=== PATIENT | female | born 1990 | race Caucasian/White ===

== ENCOUNTER 2018-03-10 18:13 | Inpatient (IN) | payer BC, OTHER ==
--- NOTE | 2018-03-10 19:35 | OBHP ---
Datetime: 03/10/2018 19:08 IP Adm Impression: Term, intrauterine ; No Active Labor; Intact Membranes IP Chief Complaint Other: Polyhydramnios SGA Term IP Admit Plan: Admit to unit; Initiate labor induction protocol Admit Comment, IP Provider: 27 yo female G1 with an IUP at 39.6 weeks and sent from Dr. Singh's office after c/o of contractions and was found to Have Polyhydramnios and SGA baby. Pt admitted for IOL, De nies any problems, LOF or VB. Adequate Movement. PMHX and PSHx Negative NKDA Medications PNV Social HX Denies x 3 A/P Discussed with Dr. Snigh and requested to admit patient for IOL for Polyhydramnios and SGA Pt extremely apprehensive with pelvic exams and requesting an Epidural will placee Cervidil, as per Dr Singh's instructions Admit with routine orders Anticipate a vaginal delivery A/P Primigravida at 39.5 weeks Not in labor Polyhydramnios SGA Sent for IOL, as per Dr. Singh Cephalic presentation verified with bedise US Pelvic Type - PN: Adequate Extremities - PN: Normal Abdomen - PN: Normal Back - PN: Normal Breast - PN: Not Done Lungs - PN: Normal Heart - PN: Normal Thyroid - PN: Normal Neurologic - PN: Normal HEENT - PN: Normal General - PN: Normal Presentation-Admit: Vertex FHR - Baseline A Provider: 150 Membranes, Provider: Intact Contraction Comments Provider: Irregular Gestation - Est Wks by US: 39.5 EGA AdmitDate IP: 39.5 Vital Signs Provider: Reviewed; Within Normal Limits IP Chief Complaint: Other NICHD Variability Prov Fetus A: Moderate 6-25bpm NICHD Accel Fetus A IP Provider: 10X10 NICHD Decel Fetus A IP Provider: None Dilatation, Provider: 2 Effacement, Provider: 70 Station, Provider: -3 Genitourinary Exam: Normal DTRs - PN: Normal
--- NOTE | 2018-03-10 19:52 | OBADHP ---
Datetime: 03/10/2018 19:08 IP Chief Complaint Other: Polyhydramnios SGA Term Admit Comment, IP Provider: 27 yo female G1 with an IUP at 39.6 weeks and sent from Dr. Singh's office after c/o of contractions and was found to Have Polyhydramnios and SGA baby. Pt admitted for IOL, De nies any problems, LOF or VB. Adequate Movement. PMHX and PSHx Negative NKDA Medications PNV Social HX Denies x 3 A/P Discussed with Dr. Singh and requested to admit patient for IOL for Polyhydramnios and SGA Pt extremely apprehensive with pelvic exams and requesting an Epidural will placee Cervidil, as per Dr Singh's instructions Admit with routine orders Anticipate a vaginal delivery A/P Primigravida at 39.5 weeks Not in labor Polyhydramnios SGA Sent for IOL, as per Dr. Singh Cephalic presentation verified with bedise US Pelvic Type - PN: Adequate Extremities - PN: Normal Abdomen - PN: Normal Back - PN: Normal Breast - PN: Not Done Lungs - PN: Normal Heart - PN: Normal Thyroid - PN: Normal Neurologic - PN: Normal HEENT - PN: Normal General - PN: Normal Presentation-Admit: Vertex FHR - Baseline A Provider: 150 Membranes, Provider: Intact Contraction Comments Provider: Irregular Gestation - Est Wks by US: 39.5 Vital Signs Provider: Reviewed; Within Normal Limits IP Chief Complaint: Maternal discomfort; Other NICHD Variability Prov Fetus A: Moderate 6-25bpm NICHD Accel Fetus A IP Provider: 10X10 NICHD Decel Fetus A IP Provider: None Dilatation, Provider: 2 Effacement, Provider: 70 Station, Provider: -3 Genitourinary Exam: Normal DTRs - PN: Normal EGA AdmitDate IP: 39.5 IP Adm Impression: Term, intrauterine ; No Active Labor; Intact Membranes IP Admit Plan: Admit to unit; Initiate labor induction protocol
[2018-03-10] MEDS ORDERED: Lactated Ringer's 1,000 ML IV ONE (19:56)
[2018-03-10 20:11] LABS: BASO % 0.3 % (0.0-2.0); EOS # 0.2 K/uL (0.0-0.7); EOS % 1.4 % (0.0-4.0); HEMOGLOBIN 12.2 g/dL (11.0-16.0); LYMPH # 2.8 K/uL (1.0-4.3); LYMPH % 23.1 % (20.0-40.0); MEAN CELL VOLUME 82.7 fL (81.0-99.0); MEAN CORPUSCULAR HEMOGLOBIN 27.4 pg (27.0-31.0); MEAN CORPUSCULAR HGB CONC 33.2 g/dL (33.0-37.0); MONO # 0.7 K/uL (0.0-0.8); MONO % 5.6 % (0.0-10.0); NEUT # 8.3 K/uL (1.8-7.0); NEUT % 69.6 % (50.0-75.0); NRBC % 0.1 % (0.0-2.0); RBC 4.45 Mil/uL (3.80-5.20); RED CELL DISTRIBUTION WIDTH 15.2 % (11.5-14.5); WHITE BLOOD COUNT 11.9 K/uL (4.8-10.8)
[2018-03-10 20:14] LABS: SQUAMOUS EPITHIAL < 1 /hpf (0-5); URINE BACTERIA FEW (<OCC); URINE BILIRUBIN NEGATIVE (NEGATIVE); URINE BLOOD NEGATIVE (NEGATIVE); URINE CLARITY Clear (Clear); URINE COLOR Colorless (YELLOW); URINE GLUCOSE (UA) NORMAL (Normal); URINE LEUKOCYTE ESTERASE NEG Leu/uL (Negative); URINE PROTEIN NEGATIVE (NEGATIVE); URINE UROBILINOGEN NORMAL mg/dL (0.2-1.0)
[2018-03-10 20:25] LABS: ALB/GLOB RATIO 1.1 (1.0-2.1); ALBUMIN 3.4 g/dL (3.5-5.0); ALT/SGPT 19 U/L (9-52); AST/SGOT 22 U/L (14-36); BLOOD UREA NITROGEN 6 mg/dL (7-17); CALCIUM 9.1 mg/dl (8.6-10.4); GFR NON-AFRICAN AMERICAN > 60
[2018-03-10] MEDS: Lactated Ringer's 1,000 ML IV SCH (20:47)
[2018-03-10] MEDS ORDERED: Nalbuphine HCL 10 mg/ml Ampule IVP PRN (22:58)
[2018-03-11] MEDS ORDERED: Bupivacaine HCl/FentaNYL Cit 100 ML EPI ONE ×2 (02:33→10:27)
[2018-03-11] MEDS: Lactated Ringer's 1,000 ML IV SCH (07:10)
[2018-03-11] MEDS: AMPicillin 2 GM in Sodium Chloride 100 ML IVPB SCH ×3 (08:21→21:54)
[2018-03-11] MEDS ORDERED: Gentamicin 80 mg/2mL Inj. ONE (08:42)
[2018-03-11] MEDS ORDERED: Oxycodone/Acetaminophen 5/325 mg Tab PO PRN (15:22)
[2018-03-11] MEDS: Benzocaine/Menthol 20%-0.5% Topical Spray (60 ml) TOP PRN (18:45)
[2018-03-11] MEDS: Oxycodone/Acetaminophen 5/325 mg Tab PO PRN (21:57)
[2018-03-12] MEDS: AMPicillin 2 GM in Sodium Chloride 100 ML IVPB SCH ×2 (03:00→10:31)
[2018-03-12] MEDS: Oxycodone/Acetaminophen 5/325 mg Tab PO PRN (04:09)
[2018-03-12 07:14] LABS: BASO % 0.2 % (0.0-2.0); EOS # 0.1 K/uL (0.0-0.7); EOS % 0.5 % (0.0-4.0); HEMOGLOBIN 10.4 g/dL (11.0-16.0); LYMPH # 1.7 K/uL (1.0-4.3); LYMPH % 9.9 % (20.0-40.0); MEAN CELL VOLUME 83.4 fL (81.0-99.0); MEAN CORPUSCULAR HEMOGLOBIN 27.8 pg (27.0-31.0); MEAN CORPUSCULAR HGB CONC 33.4 g/dL (33.0-37.0); MEAN PLATELET VOLUME 8.9 fL (7.2-11.7); MONO # 0.7 K/uL (0.0-0.8); MONO % 4.3 % (0.0-10.0); NEUT # 14.4 K/uL (1.8-7.0); NEUT % 85.1 % (50.0-75.0); PLATELET COUNT 197 K/uL (130-400); RBC 3.74 Mil/uL (3.80-5.20); RED CELL DISTRIBUTION WIDTH 14.9 % (11.5-14.5)
[2018-03-12 09:14] LABS: BANDS 1 % (0-2); EOSINOPHIL 2 % (0-4); MONOCYTE 2 % (0-10); PLATELET ESTIMATE NORMAL (NORMAL); TOTAL CELLS COUNTED 100
[2018-03-12 09:15] LABS: ANISOCYTOSIS SLIGHT; HYPOCHROMIC SLIGHT; LARGE PLATELETS PRESENT; LYMPHOCYTE 8 % (20-40); NEUTROPHIL 87 % (50-75); POIKILOCYTOSIS SLIGHT
[2018-03-12] MEDS: Multiple Vitamins Tab PO SCH (09:27)
[2018-03-12] MEDS ORDERED: AMPicillin 2 GM in Sodium Chloride 100 ML IVPB SCH (10:45)
--- NOTE | 2018-03-12 20:48 | OBPPN ---
Datetime: 03/12/2018 20:46 PP Pain Prov: Within normal limits PP Nausea Prov: Denies PP Breasts Prov: Normal PP Heart Prov: Normal PP Lungs Prov: Normal PP Abdomen/Uterus Prov: Normal PP Lochia Prov: Normal PP Vulva/Perineum Prov: Not Done PP CVA Tenderness Prov: Normal PP Extremities Prov: Normal PP C/S Incision Prov: Normal PP Progress Prov: Normal PP Impression Prov: Normal progression PP Plan Prov: Continue present management IP PP Procedures: None Vital Signs Provider PP: Reviewed; Within Normal Limits
[2018-03-13] MEDS: DEXTROSE IVPB SCH ×4 (00:20→18:00)
[2018-03-13] MEDS: CEFOXITIN IVPB SCH ×4 (00:20→18:00)
[2018-03-13] MEDS: Multiple Vitamins Tab PO SCH (09:54)
[2018-03-13] MEDS ORDERED: Influenza Vaccine 60 MCG/0.5 ML SYR (3 yr & up) IM ONE (13:08)
[2018-03-13] MEDS: Benzocaine/Menthol 20%-0.5% Topical Spray (60 ml) TOP PRN (14:16)
[2018-03-13 16:31] VITALS: BP 111/74; PULSE 81; TEMP 96.5; O2SAT 98
[2018-03-14 02:14] VITALS: RESP 20
== END 2018-03-13 18:50 | disposition home or self-care (01) | DRG 806 ==
LOC: C.EROB 18:13 → C.4D 19:00 → C.4M 03-11 17:53
PROVIDERS: ADMIT Obstetrics & Gynecology; ATTEND Obstetrics & Gynecology
PROC: 3E0P7VZ Introduction of Hormone into Female Reproductive, Via Natural or Artificial Opening (ICD-10-PCS; principal; 2018-03-10)
PROC: 10D07Z6 Extraction of Products of Conception, Vacuum, Via Natural or Artificial Opening (ICD-10-PCS; 2018-03-11)
DX: O40.3XX0 Polyhydramnios, third trimester, not applicable or unspecified (principal); O75.2 Pyrexia during labor, not elsewhere classified; O36.5930 Maternal care for other known or suspected poor fetal growth, third trimester, not applicable or unspecified; Z3A.39 39 weeks gestation of pregnancy; Z37.0 Single live birth